=== PATIENT | female | born 1990 | race Two or more races ===

== ENCOUNTER → 2025-03-10 | Outpatient (CLI) | payer OTHER, SELFPAY ==
[2025-03-10 10:16] LABS: Beta HCG,Quantitative 9661 mIU/mL (<5.0)
== END | disposition home or self-care (01) ==
LOC: COPL 08:02
PROVIDERS: PCP Family Medicine; Referring Provider Registered Nurse; Visit Provider Registered Nurse
DX: Z32.01 Encounter for pregnancy test, result positive (principal)
CPT/HCPCS: 36415; 84702

== ENCOUNTER → 2025-03-10 | Outpatient (CLI) | payer OTHER, SELFPAY ==
--- NOTE | 2025-03-10 09:40 | XR_ITS ---
Examination: Complete OB ultrasound, less than 14 weeks, transabdominal Date and time of exam: March 10, 2025 0950 hours INDICATIONS: Vaginal bleeding beginning one week ago Technique: Obstetrical ultrasound images less than 14 weeks performed via transabdominal imaging Findings: Uterus 8.9 cm, intrauterine gestational sac 1.0 cm corresponds to 5 weeks 5 day gestational age No pole, no cardiac activity Right ovary 2.8 cm arterial flow Left ovary 3.0 cm arterial flow No fluid in the cul-de-sac IMPRESSION: Empty intrauterine gestational sac corresponding to 5 weeks 5 day gestational age, no pole, no cardiac activity Recommend follow-up transvaginal pelvic sonography to confirm viability
== END | disposition home or self-care (01) ==
PROVIDERS: PCP Family Medicine; Referring Provider Family Medicine; Visit Provider Family Medicine
DX: Z32.01 Encounter for pregnancy test, result positive (principal)
CPT/HCPCS: 76801

== ENCOUNTER → 2025-03-11 | Outpatient (CLI) | payer OTHER, SELFPAY ==
[2025-03-11 12:15] LABS: Beta HCG,Quantitative 11571 mIU/mL (<5.0)
== END | disposition home or self-care (01) ==
LOC: COPL 10:41
PROVIDERS: PCP Family Medicine; Referring Provider Registered Nurse; Visit Provider Registered Nurse
DX: Z32.01 Encounter for pregnancy test, result positive (principal)
CPT/HCPCS: 36415; 84702

== ENCOUNTER 2025-03-23 14:23 | Outpatient (AMB) | payer OTHER, SELFPAY ==
[2025-03-23 14:57] VITALS: BP 154/105; PULSE 92; RESP 18; TEMP 36.2; O2SAT 98; BMI 38.1
--- NOTE | 2025-03-23 14:57 | OBCLNT_ITS ---
Vital Signs 03/23/25 14:57 Height 1.52 m Height Method Stated Weight 88.564 kg Weight Measurement Method Standing Scale BMI 38.1 BP 154/105 H Blood Pressure Source Automatic Cuff Blood Pressure Location Left Upper Arm Position Sitting Respiration 18 Pulse 92 Pulse Source Monitor Temp 97.2 F Temp Source Oral Pulse Oximetry (%) 98 Oxygen Delivery Method Room Air Allergies/Home Meds Allergies & Medications Allergies azithromycin Allergy (Verified 03/28/25 15:14) Diarrhea Medication Reconciliation ibuprofen 600 mg tablet 600 mg PO TID pain #30 tabs 08/28/18 [Rx Confirmed 03/28/25] labetalol 200 mg tablet 200 mg PO BID 30 days #60 tabs 03/28/25 [Rx] Intake Visit Data Collection New Patient or Established: New Patient not seen in past 3 years at [facility] (considered New) Reason for Visit:: OBI Seen by Clinical Staff ONLY (RN/MA): No Register In Chancery Required: No Do You Feel Safe at Home: Yes Authorities Contacted: N/A PCP or OBGYN visit in last 3 months: Yes Hx Now: Yes Are you currently on any form of Control: No Last menstrual period: 01/14/25 Pain Present Currently: No Pain Scale Used: Zaidi-Felipe/Numerical Pain scale:: 0 Smoking Status Smoking Status: Never smoker Questionnaires Covid-19 Vaccine Questionnaire Has patient been vacinated for Covid-19 Have you been vacinated for Covid-19: Yes PHQ-9 PHQ-2 Over the last 2 weeks, how often have you been bothered by any of the following problems? 1. Little interest or pleasure in doing things: not at all 2. Feeling down, depressed, or hopeless: not at all Total score: 0 PHQ-9 3. Trouble falling or staying asleep, or sleeping too much: Not at all 4. Feeling tired or having little energy: Not at all 5. Poor appetite or overeating: Not at all 6. Feeling bad about yourself - or that you are a failure or have let yourself or your family down: Not at all 7. Trouble concentrating on things, such as reading the newspaper or watching television: Not at all 8. Moving or speaking so slowly that other people could have noticed? - Or the opposite - being so fidgety or restless that you have been moving around a lot more than usual: not at all 9. Thoughts that you would be better off or of hurting yourself in some way: Not at all Total score: 0 If you checked off any problems, how difficult have these problems made it for you to do your work, take care of things at home, or get along with other people?: not difficult at all Source: Developed by Drs. Giuseppe Smith, Yennifer eVlarde, Sarthak Oneal and colleagues, with an educational tami from [employer]. 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 Past Medical History: No Hx Neurological Disorders, No Hx Cardiac Disorders, No Hx Blood Disorders, Yes Hx Gastrointestinal Disorders, No Hx Renal Disease, No Hx Diabetes Mellitus Type 1 and No Hx Diabetes Mellitus Type 2 OB Initial Visit Menstrual History Menstrual reliability: definite Flow: normal Menstrual regularity: regular Monthly: Yes Age at menarche: 11 On control pills at conception: No OB History : 1 Para: 0 Hx # Pregnancies: 0 Hx Total # of Abortions (Spontaneous & Elective): 0 # of Living Children: 0 Infection History & Risk Evaluation History of STDs: none HIV risk evaluation: low risk Hepatitis B risk evaluation: low risk Patient or partner has history of Genital Herpes: No Varicella/chicken pox status: immunized Genetic Screening & History Genetic Screening/Teratology Counseling - Includes patient, baby's father, or a nyone in either family with: 1. Patient's age 35 years or older as of estimated date of delivery: No 2. Thalassemia (Lebanese, Maori, Mediterranean, or Background); MCV less than 80: No 3. Neural Tube Defect (Meningomyelocele, Spina Bifida, or Anencephaly): No 4. Congenital Heart Defect: No 5. Down Syndrome: No 6. Dennis-Sachs (Ashkenazi Holiness, Cajun, [place]er Polish): No 7. Florentin Disease (Ashkenazi Holiness): No 8. Familial Dysautonomia (Ashkenazi Holiness): No 9. Sickle Cell Disease or Trait (): No 10. Hemophilia or other blood disorders: No 11. Muscular Dystrophy: No 12. Cystic Fibrosis: No 13. Jai's Chorea: No 14. 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 Other inherited genetic or chromosomal disorder: No 16. Maternal Metabolic Disorder (EG,TYPE 1 Diabetes, PKU): No 17. Patient or baby's father had a child with defects not listed above: No 18. Recurrent loss or a stillbirth: No 19. Medications (including supplements, vitamins, herbs or otc drugs)/illicit/recreational drugs/alcohol since last menstrual period: No 20. Any other: No Infection History 1. Live with someone with TB or exposed to TB: No 2. Rash or viral illness since last menstrual period: No 3. 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
== END 2025-03-23 15:08 | disposition home or self-care (01) ==
LOC: HODSOBC 14:23
PROVIDERS: PCP Physician Assistant; Referring Provider Physician Assistant; Supervising Provider Advanced Practice Midwife; Visit Provider Advanced Practice Midwife
DX: O36.80X0 Pregnancy with inconclusive fetal viability, not applicable or unspecified (principal); Z3A.00 Weeks of gestation of pregnancy not specified
CPT/HCPCS: 76801; 99203; G0463

== ENCOUNTER → 2025-03-23 | Outpatient (CLI) | payer OTHER, SELFPAY ==
--- NOTE | 2025-03-23 15:37 | XR_ITS ---
Examination: Complete OB ultrasound, less than 14 weeks, transabdominal Date and time of exam: March 23, 2025, 1558 hours Comparison March 10, 2025 INDICATIONS: Empty intrauterine gestational sac March 10, 2025 Technique: Obstetrical ultrasound images less than 14 weeks performed via transabdominal imaging Findings: Uterus 8.1 cm, intrauterine gestational sac 2.2 cm corresponds to 7 weeks 1 day gestational age No pole, no cardiac activity Right ovary 3.5 cm arterial flow. Left ovary 4.2 cm arterial flow IMPRESSION: Findings suspicious for embryonic demise, recommend continued follow-up pelvic sonography
--- NOTE | 2025-03-23 16:09 | XR_ITS ---
Examination: OB Transvaginal ultrasound of the pelvis, complete Technique: Transvaginal sonographic images pelvis performed using rosenberg scale imaging Exam date and time: March 23, 2025 1613 hours INDICATIONS: Empty intrauterine gestational sac March 10, 2025 FINDINGS: Uterus 8.9 cm, pole is 0.4 cm corresponds to 6 weeks 1 day gestational age No cardiac motion Right ovary of secured by bowel gas Left ovary 4.1 cm arterial flow IMPRESSION: Intrauterine gestation, pole 0.4 cm corresponds to 6 weeks 1 day gestational age, however no cardiac motion Suggest continued follow-up to document viability.
[2025-03-23 18:48] LABS: Beta HCG,Quantitative 28829 mIU/mL (<5.0)
== END | disposition home or self-care (01) ==
LOC: CDIM 16:08 → COPL 16:29
PROVIDERS: PCP Family Medicine; Referring Provider Obstetrics & Gynecology; Visit Provider Obstetrics & Gynecology
DX: O36.80X0 Pregnancy with inconclusive fetal viability, not applicable or unspecified (principal)
CPT/HCPCS: 36415; 76801; 76817; 84702

== ENCOUNTER 2025-03-28 14:59 | Outpatient (AMB) | payer OTHER, SELFPAY ==
[2025-03-28 15:13] VITALS: BP 150/96; PULSE 88; RESP 18; TEMP 36.2; O2SAT 97; BMI 38.1
--- NOTE | 2025-03-28 15:13 | OBCLNT_ITS ---
Vital Signs 03/28/25 15:13 Height 1.52 m Height Method Stated Weight 88.11 kg Weight Measurement Method Standing Scale BMI 38.1 BP 150/96 H Blood Pressure Source Automatic Cuff Blood Pressure Location Left Upper Arm Position Sitting Respiration 18 Pulse 88 Pulse Source Monitor Temp 97.2 F Temp Source Oral Pulse Oximetry (%) 97 Oxygen Delivery Method Room Air Allergies/Home Meds Allergies & Medications Allergies azithromycin Allergy (Verified 03/28/25 15:14) Diarrhea Medication Reconciliation ibuprofen 600 mg tablet 600 mg PO TID pain #30 tabs 08/28/18 [Rx Confirmed 03/28/25] labetalol 200 mg tablet 200 mg PO BID 30 days #60 tabs 03/28/25 [Rx] Intake Visit Data Collection New Patient or Established: Established Patient (seen at [facility] within 3 years) Reason for Visit:: OBC /LAB RESULTS Seen by Clinical Staff ONLY (RN/MA): No Certified Teacher Assistant Required: No Do You Feel Safe at Home: Yes Authorities Contacted: N/A PCP or OBGYN visit in last 3 months: Yes Date of Last PCP or OBGYN visit: 03/23/25 Hx Now: Yes Are you currently on any form of Control: No Pain Present Currently: No Pain Scale Used: Zaidi-Felipe/Numerical Pain scale:: 0 Smoking Status Smoking Status: Never smoker Questionnaires Covid-19 Vaccine Questionnaire Has patient been vacinated for Covid-19 Have you been vacinated for Covid-19: Yes PHQ-9 PHQ-2 Over the last 2 weeks, how often have you been bothered by any of the following problems? 1. Little interest or pleasure in doing things: not at all 2. Feeling down, depressed, or hopeless: not at all Total score: 0 PHQ-9 3. Trouble falling or staying asleep, or sleeping too much: Not at all 4. Feeling tired or having little energy: Not at all 5. Poor appetite or overeating: Not at all 6. Feeling bad about yourself - or that you are a failure or have let yourself or your family down: Not at all 7. Trouble concentrating on things, such as reading the newspaper or watching television: Not at all 8. Moving or speaking so slowly that other people could have noticed? - Or the opposite - being so fidgety or restless that you have been moving around a lot more than usual: not at all 9. Thoughts that you would be better off or of hurting yourself in some way: Not at all Total score: 0 If you checked off any problems, how difficult have these problems made it for you to do your work, take care of things at home, or get along with other people?: not difficult at all Source: Developed by Drs. Giuseppe Smith, Yennifer Velarde, Sarthak Oneal and colleagues, with an educational tami from [employer]. 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 She is currently in the early stages of , with her last menstrual period reported in December. She had a transvaginal ultrasound on March 23, 2025, which showed an intrauterine gestation with a pole measuring 0.4 centimeters, co rresponding to 6 weeks and 1 day gestation. No cardiac motion was noted at that time. Patient expresses concern about this finding, asking if it is normal. She also reports noticing yellow discharge when wiping, which she was informed is likely due to the prometrium she is taking. Patient's HCG levels have been monitored, showing an increasing trend. On March 10, her level was 9,661, rising to 11,571 on March 11, and further increasing to 28,829 on March 23, 2025. She understands that these numbers are doubling as expected in early . She mentions she is currently taking methyldopa for blood pressure management. A change to labetalol is being considered, but she has been advised to wait for now. She is A0 L0. Her current is at gestational age 6 weeks 1 day as of March 23, 2025, with last menstrual period in December 2024. Patient has a history of hypertension, currently managed with medication. She is taking Prometrium, which causes yellow discharge when wiping, and methyldopa for blood pressure. She mentions having to get out for work. Patient reports positive for yellow vaginal discharge when wiping. Diagnostic Test Results and Labs: - HCG: - 03/10/2025: 9661 - 03/11/2025: 72432 - 03/23/2025: 63983 - Transvaginal Ultrasound (03/23/2025): - Intrauterine gestation - pole: 0.4 cm, corresponding to 6 weeks and 1 day - No cardiac motion noted Review of Systems Review of Systems Systems Reviewed: All systems reviewed, normal except as documented Exam General General Appearance: alert, in no apparent distress and healthy appearing Head Head exam: atraumatic Neck Neck exam: Present normal inspection and trachea midline Chest Chest inspection: Present normal inspection and symmetric chest wall rise External exam: Present normal external exam; Absent tenderness Neuro Neurological exam: Present oriented X3 Psych Psychiatric exam: Present normal affect and normal mood Office Procedures OB Clinic LOC & Office Proc's Nursing/Assessment Patient Status: Established Patient OB Clinic Nursing Assessment: Medication Reconciliation, Update PMH in EMR and Vital Signs OB Clinic Coordination of Care: Education Complex Pt/Fam, Consent,records obtained, informed consent, Lab and Imaging orders and Staff clarify orders Special Needs: Heart tones Established Patient Charge Established Patient Point Assignment: 110 Established Patient Point Charge: EP Level 3 (80-115) Assessment & Plan Diagnosis / Problem List (1) Threatened : Status: Acute Plan Early Plan: - Schedule repeat transvaginal ultrasound for Friday04/01/2025 or Friday04/04/2025. - Follow-up appointment scheduled for Friday04/05/2025 to review ultrasound results. - Continue Prometrium (progesterone) vaginal suppositories as previously prescribed. - Patient educated on normal early symptoms, including yellow vaginal discharge from Prometrium. Hypertension Plan: - Plan to change antihypertensive medication from methyldopa to labetalol. - Prescription for labetalol to be provided. - Continue current methyldopa regimen until further instruction.
== END 2025-03-28 15:34 | disposition home or self-care (01) ==
LOC: HODSOBC 14:59
PROVIDERS: PCP Physician Assistant; Referring Provider Physician Assistant; Supervising Provider Obstetrics & Gynecology; Visit Provider Obstetrics & Gynecology
DX: O20.0 Threatened abortion (principal); Z3A.01 Less than 8 weeks gestation of pregnancy; O10.911 Unspecified pre-existing hypertension complicating pregnancy, first trimester; Z79.899 Other long term (current) drug therapy; Z88.1 Allergy status to other antibiotic agents
CPT/HCPCS: 99213; G0463

== ENCOUNTER → 2025-04-08 | Outpatient (CLI) | payer OTHER, SELFPAY ==
--- NOTE | 2025-04-08 11:27 | XR_ITS ---
Examination: Complete OB ultrasound, less than 14 weeks, transabdominal Date and time of exam: April 08, 2025 1133 hours INDICATIONS: Pelvic cramping today Technique: Obstetrical ultrasound images less than 14 weeks performed via transabdominal imaging Findings: Uterus 9.5 cm intrauterine gestational sac 2.5 cm corresponds to 7 weeks 4 days gestational age No pole, no cardiac activity Right ovary 2.4 cm arterial flow Left ovary 2.7 cm arterial flow IMPRESSION: Suspicious for embryonic demise, recommend short-term follow-up transvaginal pelvic sonography
== END | disposition home or self-care (01) ==
PROVIDERS: PCP Family Medicine; Referring Provider Obstetrics & Gynecology; Visit Provider Obstetrics & Gynecology
DX: O20.0 Threatened abortion (principal)
CPT/HCPCS: 76801

== ENCOUNTER 2025-04-12 21:00 | Emergency (ER) | payer OTHER, SELFPAY ==
[2025-04-12 21:01] VITALS: BMI 38.2
--- NOTE | 2025-04-12 21:35 | PC.NURSE ---
PTS PHILIP CAME TO NURSES STATION REPORTING PT STARTED HAVING VAGINAL BLEEDING, PAD GIVEN
[2025-04-12 21:55] VITALS: BP 157/93; PULSE 95; RESP 18; TEMP 36.8; O2SAT 96
--- NOTE | 2025-04-12 22:09 | XR_ITS ---
Examination: OB Transvaginal ultrasound of the pelvis, complete Technique: Transvaginal sonographic images pelvis performed using rosenberg scale imaging Exam date and time: April 12, 2025 10:22 PM INDICATIONS: Pelvic pain and bleeding beginning 5 days ago FINDINGS: Uterus 9.2 cm endometrial stripe 1.8 cm No uterine mass or intrauterine gestation Right ovary 2.8 cm arterial flow Left ovary 2.8 cm arterial flow IMPRESSION: Negative examination.
--- NOTE | 2025-04-12 22:13 | EDNOTE_ITS ---
<Statement entered by Areli Burch MD - 04/13/25 21:03> As co-signing physician, I was present and available for consult prn. I concur with the plan and care as documented by the midlevel provider. ED OB Contraction Preg RMI/HPI General Chief complaint: Abdominal Pain Stated complaint: CRAMPS [id number] PREG Time Seen by Provider: 04/12/25 22:09 Arrival date/time: 04/12/25 21:00 34F at approximately 9 weeks and with no significant PMh presents to ED with 1 day of pelvic pain/cramping and vaginal bleeding, including likely POC. Patient had US done several days ago outpatient that showed likely embryonic demise. Limitations: no limitations Related Data Previous Rx's ?Medication ?Instructions ?Recorded ibuprofen 600 mg tablet 600 mg PO TID pain #30 tabs 08/28/18 labetalol 200 mg tablet 200 mg PO BID 30 days #60 ta bs 03/28/25 Allergies Allergy/AdvReac Type Severity Reaction Status Date / Time azithromycin Allergy Diarrhea Verified 03/28/25 15:14 Review of Systems Review of Systems Systems Reviewed: All systems reviewed, normal except as documented Constitutional Constitutional: Reports system reviewed and no additional complaints, except as documented, Denies fever(s) and Denies headache(s) ENT Ears, Nose, Mouth, and Throat: Denies disequilibrium and Denies headache(s) Cardiovascular Cardiovascular: Reports system reviewed and no additional complaints, except as documented, Denies chest pain and Denies dyspnea Respiratory Respiratory: Reports system reviewed and no additional complaints, except as documented, Denies cough and Denies dyspnea Gastrointestinal Gastrointestinal: Reports system reviewed and no additional complaints, except as documented, Denies abdominal pain, Denies nausea and Denies vomiting Genitourinary Genitourinary: Reports as per HPI, Reports abnormal vaginal bleeding and Reports pelvic pain Neurologic Neurologic: Reports system reviewed and no additional complaints, except as documented, Denies confusion, Denies disequilibrium and Denies headache(s) Psychiatric Psychiatric: Denies confusion Past Medical History Past Medical History NEUROLOGIC: Negative Neurological Disorders or Seizures CARDIAC: Negative Cardiac Disorders or Congestive Heart Failure RESPIRATORY: Negative Chronic Obstructive Pulmonary Disease (COPD) GASTROINTESTINAL: Positive Gastrointestinal Disorders and Obesity GENITOURINARY: Negative Genitourinary Disorders or Renal Disease MUSCULOSKELETAL: Negative Musculoskeletal Disorders ENDOCRINE: Negative Endocrine Disorders, Diabetes Mellitus Type 1 or Diabetes Mellitus Type 2 HEMATOLOGIC: Negative Blood Disorders OTHER HISTORY: Negative Hospitalization, Autoimmune Disease, Shingles, Falls, Blood Transfusions or Anesthesia Reactions Family History FAMILY HISTORY: Positive Family Cardiac Disorders (MOTHER (HTN)) and Family Surgery (MOTHER); Negative Family Psychiatric Problems, Family Respiratory Disorders, Family Gastrointestinal Problems, Family Cancer or Family Anesthesia Reaction Social History SMOKING STATUS: Never smoker SECOND HAND EXPOSURE: No ED Exam General Limitations: Present no limitations General appearance: Present alert and in no apparent distress Head Head exam: Present atraumatic Eye Eye exam: Present normal appearance, PERRL and EOMI ENT ENT exam: Present normal exam, normal oropharynx and mucous membranes moist Neck Neck exam: Present normal inspection, full ROM and trachea midline Chest Chest inspection: Present normal inspection and symmetric chest wall rise Respiratory Respiratory exam: Present normal lung sounds bilaterally Cardiovascular Cardiovascular exam: Present regular rate, normal rhythm and normal heart sounds Abdominal Exam Abdominal exam: Present soft and normal bowel sounds Extremities Exam Extremities exam: Present normal inspection and full ROM Back Exam Back exam: Present normal inspection and full ROM Neurological Exam Neurological exam: Present alert, oriented X3 and CN II-XII intact Psychiatric Psychiatric exam: Present normal affect and normal mood Skin Skin exam: Present warm, dry, intact and normal color Course Quality Measures none Orders Category Date Time Status US OB transvaginal Stat Exams 04/12/25 22:09 Completed ABO/RH Type Stat Lab 04/12/25 22:40 Completed Beta HCG,Quantitative Stat Lab 04/12/25 22:40 Completed CBC Stat Lab 04/12/25 22:40 Completed CMP [Comprehensive Metabolic Panel] Stat Lab 04/12/25 22:40 Completed Vital Signs Vital signs: Vital Signs Temperature 98.3 F 04/12/25 21:55 Pulse Rate 95 04/12/25 21:55 Respiratory Rate 18 04/12/25 21:55 Blood Pressure 157/93 H 04/12/25 21:55 Pulse Oximetry (%) 96 04/12/25 21:55 Oxygen Delivery Method Room Air 04/12/25 21:55 O2 at 96% on RA and WNLs Vaginal Bleeding MDM Narrative MDM Narrative: 34F at approximately 9 weeks and with no significant PMh presents to ED with 1 day of pelvic pain/cramping and vaginal bleeding, including likely POC. Patient had US done several days ago outpatient that showed likely embryonic demise. Physical exam reveals well-appearing female. Patient is afebrile, calm, and alert. US neg. Beta HCG decreased compared to blood draw from earlier today. Minimal leukocytosis and anemia. A+. User Support Analyst given. Patient data External records reviewed:: [facility] previous records Clinical information provided by:: patient Social determinants that could affect healthcare access:: none Patient has the following chronic illnesses:: none How is presenting disease/condition affected by chronic disease/condition?: no chronic disease Evaluation data The following diagnostics were reviewed and interpreted by me:: lab results and radiology exam(s) Lab and/or radiology exams considered but not ordered:: ordered Interpretation Summary: above Medications / Prescriptions Medications or Prescriptions considered but not ordered:: not ordered Medication administrations:: n/a Consultations Consultation(s) initiated? (list below): No Diagnosis Vaginal Bleeding Differential Diagnosis: missed , threatened , dysfunctional uterine bleeding, menometrorrhagia, incomplete , ectopic without intrauterine , vaginal bleeding and other (complete miscarriage) Most likely diagnosis given after review of the tests above:: complete miscarriage Admission Indicated Admission indicated?: not indicated Admission Request Was there a request for admission?: No Disposition Plan Disposition Plan: Discharge Discharge Attestation Discharge Attestation: The patient and all family members were given an opportunity to ask questions and understood the discharge instructions. Discharge instructions specifically effects, indications for sooner follow up or return to the emergency department, and the expected course of current diagnosis. Patient condition: Stable Discharge Plan Plan Patient Disposition: HOME (Self Care) Discharge Disposition comment: Stable Prescriptions/Referrals Prescriptions/Med Rec: No Action labetalol 200 mg tablet 200 mg PO BID 30 Days Qty: 60 2RF ibuprofen 600 mg tablet 600 mg PO TID Qty: 30 0RF Referrals: Paul Bishop MD [Primary Care Provider] - In 1 week Problem List Clinical Impression: Complete miscarriage Patient/Caregiver Discharge Instructions Education Materials: ED MISCARRIAGE Completed Additional Instructions: Please follow-up with PCP/OBGYN within 24-48 hours and return immediately if symptoms worsen. Print Language: Andorran Stand Alone Forms: Patient Portal Info Letter CASTRO/JAYME Supervising Physician CASTRO/JAYME Supervising Physician: Dr. Burch
[2025-04-12 23:00] LABS: Basophils % (Auto) 0 % (0-2.5); Eosinophils # (Auto) 0.3 Thou/mm3 (0.0-0.5); Eosinophils % (Auto) 2 % (0-10); Hematocrit 32.1 % (36.0-46.0); Hemoglobin 10.6 g/dL (12.0-16.0); Immature Granulocytes % (Auto) 0 % (0-0); Immature Granulocytes Auto 0.03 Thou/mm3 (0.00-0.00); Lymphocytes # (Auto) 1.6 Thou/mm3 (1.0-4.8); Lymphocytes % (Auto) 14 % (10-50); Mean Corpuscular Hemoglobin 24.4 pg (25.0-35.0); Mean Corpuscular Volume 74 fL (80-100); Monocytes # (Auto) 0.6 Thou/mm3 (0.0-0.8); Monocytes % (Auto) 6 % (0-12); Neutrophils # (Auto) 9.1 Thou/mm3 (1.8-7.7); Neutrophils % (Auto) 78 % (37-80); Nucleated Red Blood Cell % 0 /100 WBC (0); Platelet Count 435 Thou/mm3 (140-440); RDW Standard Deviation 47.9 fL (36.4-46.3); Red Blood Count 4.34 Miln/mm3 (4.00-5.20); White Blood Count 11.6 Thou/mm3 (3.6-11.0)
[2025-04-12 23:16] LABS: Alanine Aminotransferase 15 U/L (10-49); Albumin, Serum 4.4 gm/dL (3.5-5.0); Albumin/Globulin Ratio 1.6 (1.2-2.2); Alkaline Phosphatase 92 U/L (46-116); Anion Gap 8 (7-16); Aspartate Amino Transferase 16 U/L (0-34); BUN/Creatinine Ratio 9 Ratio (12-20); Bilirubin,Total 0.2 mg/dL (0.3-1.2); Blood Urea Nitrogen 7 mg/dL (9-23); Chloride 107 mMol/L (98-107); Creatinine (Component) 0.8 mg/dL (0.6-1.3); Estimated Creatinine Clearance 99.3 mL/min (>60); Globulin 2.8 gm/dL (2.3-3.5); Glucose 127 mg/dL (74-106); Osmolality,Calculated 277 (275-295); Potassium 3.8 mMol/L (3.4-5.1); Sodium 139 mMol/L (136-145); Total Protein 7.2 gm/dL (5.7-8.2); eGFR > 60 See Note
[2025-04-12 23:29] LABS: Beta HCG,Quantitative 2705 mIU/mL (<5.0)
== END 2025-04-12 23:45 | disposition home or self-care (01) ==
PROVIDERS: Physician Assistant; Emergency Provider Emergency Medicine; PCP Family Medicine
DX: O03.9 Complete or unspecified spontaneous abortion without complication (principal)
CPT/HCPCS: 36415; 76817; 80053; 84702; 85025; 86900; 86901; 99284

== ENCOUNTER → 2025-04-12 | Outpatient (CLI) | payer OTHER, SELFPAY ==
[2025-04-12 18:04] LABS: Beta HCG,Quantitative 3154 mIU/mL (<5.0)
== END | disposition home or self-care (01) ==
LOC: COPL 16:09
PROVIDERS: PCP Family Medicine; Referring Provider Obstetrics & Gynecology; Visit Provider Obstetrics & Gynecology
DX: O36.80X0 Pregnancy with inconclusive fetal viability, not applicable or unspecified (principal); Z3A.00 Weeks of gestation of pregnancy not specified
CPT/HCPCS: 36415; 84702

== ENCOUNTER 2025-04-18 13:18 | Outpatient (AMB) | payer OTHER, SELFPAY ==
[2025-04-18 13:37] VITALS: BP 147/97; PULSE 82; RESP 18; TEMP 36.2; O2SAT 98; BMI 36.9
--- NOTE | 2025-04-18 13:37 | AMB.GYNCLNOT ---
Vital Signs 04/18/25 13:37 Height 1.52 m Height Method Stated Weight 85.275 kg Weight Measurement Method Standing Scale BMI 36.9 BP 147/97 H Blood Pressure Source Automatic Cuff Blood Pressure Location Left Upper Arm Position Sitting Respiration 18 Pulse 82 Pulse Source Monitor Temp 97.2 F Temp Source Oral Pulse Oximetry (%) 98 Oxygen Delivery Method Room Air Allergies/Home Meds Allergies & Medications Allergies azithromycin Allergy (Verified 04/18/25 13:38) Diarrhea Medication Reconciliation ibuprofen 600 mg tablet 600 mg PO TID pain #30 tabs 08/28/18 [Rx Confirmed 04/18/25] labetalol 200 mg tablet 200 mg PO BID 30 days #60 tabs 03/28/25 [Rx Confirmed 04/18/25] Intake Visit Data Collection New Patient or Established: Established Patient (seen at [facility] within 3 years) Reason for Visit:: ER FOLLOW UP Seen by Clinical Staff ONLY (RN/MA): No Director Organizational Required: No Do You Feel Safe at Home: Yes Authorities Contacted: N/A PCP or OBGYN visit in last 3 months: Yes Date of Last PCP or OBGYN visit: 04/12/25 Pain Present Currently: No Pain Scale Used: Zaidi-Felipe/Numerical Pain scale:: 0 Smoking Status Smoking Status: Never smoker Dietitian Therapeutic history Dietitian Therapeutic History Menstrual regularity: regular Flow: normal Monthly: Yes Menopausal: No Currently sexually active: Yes 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 1. Little interest or pleasure in doing things: not at all 2. Feeling down, depressed, or hopeless: not at all Total score: 0 PHQ-9 3. Trouble falling or staying asleep, or sleeping too much: Not at all 4. Feeling tired or having little energy: Not at all 5. Poor appetite or overeating: Not at all 6. Feeling bad about yourself - or that you are a failure or have let yourself or your family down: Not at all 7. Trouble concentrating on things, such as reading the newspaper or watching television: Not at all 8. Moving or speaking so slowly that other people could have noticed? - Or the opposite - being so fidgety or restless that you have been moving around a lot more than usual: not at all 9. Thoughts that you would be better off or of hurting yourself in some way: Not at all Total score: 0 If you checked off any problems, how difficult have these problems made it for you to do your work, take care of things at home, or get along with other people?: not difficult at all Source: Developed by Drs. Giuseppe Smith, Yennifer Velarde, Satrhak Oneal and colleagues, with an educational tami from [employer]. Depression screen completed yes Social History Living Situation History Lives With: Significant Other Housing: House Tobacco History Smoking Status: Never smoker Second Hand Smoke Exposure: No Alcohol History Alcohol Intake: Never Domestic Abuse History Do You Feel Safe at Home: Yes Office Procedures OB Clinic LOC & Office Proc's Nursing/Assessment Patient Status: Established Patient OB Clinic Nursing Assessment: Medication Reconciliation, Update PMH in EMR and Vital Signs OB Clinic Coordination of Care: Education Complex Pt/Fam, Consent,records obtained, informed consent, Lab and Imaging orders and Staff clarify orders Established Patient Charge Established Patient Point Assignment: 80 Established Patient Point Charge: EP Level 3 (80-115) Assessment & Plan Diagnosis / Problem List (1) Maternal care for low transverse scar from previous delivery: Status: Acute (2) Supervision of high risk , unspecified, third trimester: Status: Acute
== END 2025-04-18 14:15 | disposition home or self-care (01) ==
LOC: HODSOBC 13:18
PROVIDERS: PCP Family Medicine; Referring Provider Family Medicine; Supervising Provider Obstetrics & Gynecology; Visit Provider Obstetrics & Gynecology
DX: O09.293 Supervision of pregnancy with other poor reproductive or obstetric history, third trimester (principal); O34.211 Maternal care for low transverse scar from previous cesarean delivery; Z3A.00 Weeks of gestation of pregnancy not specified; Z88.1 Allergy status to other antibiotic agents
CPT/HCPCS: 99213; G0463

== ENCOUNTER → 2025-09-28 | Outpatient (CLI) | payer OTHER, SELFPAY ==
[2025-09-28 14:27] LABS: Misc Send Out* See Sep Rpt
[2025-09-28 15:55] LABS: Syphilis Nonreactive (Nonreactive)
[2025-09-28 16:37] LABS: HIV (1&2) Antibody Rapid Non-Reactive
[2025-09-29 11:03] LABS: Chlamydia trachomatis PCR Negative (Not Detect); Neisseria Gonorrhoeae DNA PCR Negative (Not Detect); Trichomonas Negative (Negative)
[2025-10-04 03:08] LABS: HSV1 IgG Type Specific Ab <0.90 INDEX
[2025-10-04 06:30] LABS: HSV2 IgG Type Specific Ab <0.90 INDEX
== END | disposition home or self-care (01) ==
LOC: COPL 14:10
PROVIDERS: PCP Registered Nurse; Referring Provider Registered Nurse; Visit Provider Registered Nurse
DX: Z11.3 Encounter for screening for infections with a predominantly sexual mode of transmission (principal)
CPT/HCPCS: 36415; 86695; 86696; 86703; 86780; 87491; 87529; 87591; 87661